=== PATIENT | male | born 1980 | race Caucasian/White ===

== ENCOUNTER 2021-02-11 13:42 | Emergency (ER) | payer OTHER, SELFPAY ==
--- NOTE | 2021-02-11 13:43 | W.ED.GENADLT ---
HPI - General Adult General: Chief complaint: Chest Pain Stated complaint: HEART PALPITATIONS Time Seen by Provider: 02/11/21 13:43 History of Present Illness: HPI narrative: DiabetesMr. Perez is a 41-year-old gentleman with history of hypertension and presents emerged department due to uncomfortable palpitations and arm tingling. He reports first noticing these episodes a few months ago. Typically they are short-lived and he describes a thumping feeling in his throat. There is no associated shortness of breath. Today he had an episode starting about noon that has persisted. He additionally endorses arm tingling. No lightheadedness, dizziness, shortness of breath. These episodes occur somewhat sporadically and he thinks he has had perhaps 4 or 5 prior to today. There are no specific provoking factors that he can identify. Intensity of symptoms is mild to moderate. No other significant changes in health reported or infectious symptoms. He just started taking Metformin about 2 weeks ago. Antihypertensive med is lisinopril. Review of Systems General: Reports: 10 or more systems reviewed and unremarkable except in HPI and below Physical Exam Narrative: EXAM NARRATIVE: GENERAL/CONSTITUTIONAL - well-appearing. No acute distress. Eyes - PERRL, no conjunctival injection ENMT - Atraumatic external nose and ears. Moist mucous membranes NECK - supple. trachea midline CARDIOVASCULAR - regular rate and rhythm. Chest pain not reproducible on palpation on exam. Palpitations correlate with ectopy noted on telemetry. Peripheral pulses 2+ and equal RESPIRATORY -clear to auscultation bilaterally. No retractions or accessory muscle use. ABDOMEN/GI - Nontender/Nondistended. No tenderness to percussion or evidence of peritonitis MSK - Extremities without obvious deformity or tenderness to palpation SKIN - Warm, Dry NEURO - alert and appropriately oriented. strength and sensation intact. Moves all extremities equally. PSYCH - Appropriate mood and affect Course ED course: - Patient was seen and evaluated by me at bedside - Patient placed on cardiac monitors, IV access obtained - Initial evaluation notable for no acute distress, nontoxic appearance. 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 - Labs notable for hypokalemia, hypocalcemia, hypomagnesium. Replenishment ordered. Delta troponin - Imaging notable for negative chest x-ray - Upon serial reexamination after treatment the patient was improved - Based on patient history, evaluation, labs, and imaging as interpreted the most likely cause of the patient's condition is unclear though given electrolyte abnormalities this certainly could cause palpitations. Patient is otherwise low risk by heart score. Patient takes lisinopril at home for hypertension and hypokalemia and other electrolyte derangements are not typical finding of this. Similar for Metformin especially in the context of normal renal function. Therefore, the cause of the patient's electrolyte abnormalities is unclear. He will require further evaluation in the primary care setting. I discussed this with the patient including need for repeat labs. - The results of ED evaluation were discussed with the patient including prescriptions and/or symptomatic cares (if applicable) including appropriate and responsible use, followup plan, and return precautions. The patient verbalized understanding and felt safe for discharge. - Patient discharged in satisfactory condition. Vital Signs: Vital signs: Vital Signs Temperature 97.9 F 02/11/21 18:55 Pulse Rate 72 02/11/21 18:55 Respiratory Rate 16 02/11/21 18:55 Blood Pressure 127/85 02/11/21 18:55 Pulse Oximetry 95 02/11/21 18:55 MDM - General Adult Medical Records: Attestation: I reviewed the patient's medical records. Lab Data: Attestation: I reviewed the patient's lab results. Labs: Lab Results 02/11/21 02/11/21 02/11/21 14:20 14:20 14:20 WBC 7.6 10^3/uL 10^3/ uL (4.0-10.0) RBC 3.99 10^6/uL L 10 ^6/uL (4.1-5.3) Hgb 11.8 g/dL g/dL (11.7-16.6) Hct 35.0 % L % (42.0-52.0) MCV 87.7 fl fl (80-94) MCH 29.6 pg pg (28.0-34.0) MCHC 33.7 g/dL g/dL (30.0-36.0) RDW 12.0 % L % (12.1-15.1) Plt Count 229 10^3/cmm 10^3 /cmm (130-400) MPV 10.6 fL H fL (7.4-10.4) Neut % (Auto) 74.8 % % Lymph % (Auto) 18.3 % % [place] % (Auto) 5.8 % % Eos % (Auto) 0.3 % % Baso % (Auto) 0.4 % % Neut # (Auto) 5.69 10^3/uL 10^3 /uL (1.8-7.7) Lymph # (Auto) 1.4 10^3/uL 10^3/ uL (0.8-4.8) [place] # (Auto) 0.4 10^3/uL 10^3/ uL (0.2-0.9) Eos # (Auto) 0.0 10^3/uL 10^3/ uL (0.0-0.8) Baso # (Auto) 0.0 10^3/uL 10^3/ uL (0.0-0.1) Nucleated RBC % (a uto) 0 % % Nucleated RBCs # 0.0 /100WBC /100W BC Sodium 140 mmol/L mmol/L (136-145) Potassium 2.8 mmol/L L* mmo l/L (3.5-5.1) Chloride 112 mmol/L H mmol /L (98-107) Carbon Dioxide 16 mmol/L L mmol/ L (22-29) Anion Gap 14.8 (5-19) BUN 9 mg/dL mg/dL (6-20) Creatinine 0.4 mg/dL L mg/dL (0.7-1.2) GFR Calculation 235.9 mL/min H mL /min (90-130) Glucose 120 mg/dL H mg/dL (65-115) Calculated Osmolal ity 290 mOsm/kg mOsm/ kg (285-295) Calcium 5.9 mg/dL L mg/dL (8.5-10.5) Ionized Calcium Me as Magnesium Total Bilirubin 0.2 mg/dL mg/dL (0.15-1.2) AST 9 U/L U/L (0-40) ALT 11 U/L U/L (0-41) Alkaline Phosphata se 45 IU/L IU/L (40-130) Troponin T Baselin e 6 ng/L ng/L (0-15) Troponin T 120 Min [place] Troponin T NT-Pro-B Natriuret Pep 13 pg/mL pg/mL (0-125) Total Protein 4.5 g/dL L g/dL (6.6-8.7) Albumin 3.1 g/dL L g/dL (3.5-5.2) Globulin 1.4 g/dL g/dL (1.3-4.6) TSH 0.72 uIU/mL uIU/m L (0.27-4.20) 02/11/21 02/11/21 02/11/21 14:20 16:31 16:31 WBC RBC Hgb Hct MCV MCH MCHC RDW Plt Count MPV Neut % (Auto) Lymph % (Auto) [place] % (Auto) Eos % (Auto) Baso % (Auto) Neut # (Auto) Lymph # (Auto) [place] # (Auto) Eos # (Auto) Baso # (Auto) Nucleated RBC % (a uto) Nucleated RBCs # Sodium Potassium Chloride Carbon Dioxide Anion Gap BUN Creatinine GFR Calculation Glucose Calculated Osmolal ity Calcium Ionized Calcium Me as Cancelled 1.1 mmol/L mmol/L (1.1-1.4) Magnesium 1.2 mg/dL L mg/dL (1.7-2.3) Total Bilirubin AST ALT Alkaline Phosphata se Troponin T Baselin e Troponin T 120 Min [place] 6.00 ng/L ng/L (0-15) Delta Troponin T 0 ABS# ABS# (0-10) NT-Pro-B Natriuret Pep Total Protein Albumin Globulin TSH EKG Data^: EKG 1: Attestation: I personally reviewed and interpreted this EKG as follows: EKG interpretation date: 02/11/21 EKG interpretation time: 13:53 Interpretation: Twelve-lead EKG shows a regular sinus rhythm at a rate of 72. MA interval 165, QRS duration 93, QTc 416. Normal axis. Interpretation: Sinus rhythm, nonspecific ST segment abnormalities. Computer generated interpretation: Chest X-Ray 02/11/21 14:06 IMPRESSION: No acute findings. EKG 2: Attestation: I personally reviewed and interpreted this EKG as follows: EKG interpretation date: 02/11/21 EKG interpretation time: 16:00 Interpretation: Twelve-lead EKG shows a regular sinus rhythm at a rate of 58. MA interval 147, QRS duration 92, QTc 387. Normal axis. Interpretation: Sinus rhythm. Nonspecific ST segment abnormalities. Similar to prior. Computer generated interpretation: Chest X-Ray 02/11/21 14:06 IMPRESSION: No acute findings. Discharge Plan Discharge Patient Disposition: Home Clinical Impression: Chest pain, Palpitation, Hypokalemia, Hypomagnesemia, Hypocalcemia Condition: Stable Prescriptions: No Action Zyrtec 10 mg Tablet 10 mg PO DAILY RF: 0 famotidine 20 mg Tablet 20 mg PO DAILY RF: 0 lisinopril 10 mg tablet 10 mg PO DAILY RF: 0 aspirin 81 mg Tablet,Chewable 81 mg PO DAILY RF: 0 Flonase 50 mcg/actuation [place],Suspension 1 spray INTRANASAL BID PRN (Reason: CONGESTION) RF: 0 metformin 500 mg tablet extended release 24 hr 500 mg PO DAILY RF: 0 sertraline 50 mg tablet 50 mg PO DAILY RF: 0 thiamine HCl (vitamin B1) 25 mg Tablet 25 mg PO DAILY RF: 0 Elderberry 200 mg Capsule 200 mg PO DAILY RF: 0 Immunicare 15-15-10 mg-unit-mcg Capsule 1 cap PO DAILY RF: 0 Discharge Orders: Discharge ED (Routine); Ordered 02/11/21 Ordered By: Yovany Hines Discharge Diet: Usual diet Discharge Activity: Resume usual activity Patient Instructions: Chest Pain (ED), Hypokalemia (ED), Hypocalcemia (ED), Hypomagnesemia (ED) Activity Restrictions/Additional Instructions: Thank you for visiting the emergency department. You were seen and evaluated for chest pain and palpitations. The exact cause of your symptoms is unclear however you were found to have electrolyte abnormalities. Please follow-up with your primary care provider. Please return to emergency department for any symptoms that you are concerned about and feel needs emergency department evaluation. Coding Level of Care Code ED Facility Assistant for Mily Low
[2021-02-11 13:44] VITALS: BP 127/87; PULSE 78; RESP 19; TEMP 36.7; O2SAT 93; BMI 32.3
--- NOTE | 2021-02-11 14:06 | XRR_ITS ---
PROCEDURE INFORMATION: Exam: XR Chest Exam date and time: 02/11/2021 2:06 PM Age: 41 years old Clinical indication: Pain; Chest pressure; Additional info: Palpatations TECHNIQUE: Imaging protocol: XR of the chest. Views: 1 view. COMPARISON: CR Arthrogram Shoulder LEFT [id number] 01/10/2016 1:28 PM FINDINGS: Lungs: Unremarkable. No consolidation. Pleural spaces: Unremarkable. No pleural effusion. No pneumothorax. Heart/Mediastinum: Unremarkable. No cardiomegaly. Bones/joints: Unremarkable. XR/XR chest 1V portable [id number] IMPRESSION: No acute findings.
--- NOTE | 2021-02-11 14:06 | ECG_ITS ---
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1980 Requested By: Yovany Hines Order Number: [id number] Luzma MD: YURIDIA SERRANO Measurements Intervals [place] Rate: 72 P: 46 [place]: 165 QRS: 9 QRSD: 93 T: 31 QT: 378 QTc: 416 Interpretive Statements SINUS RHYTHM WITH OCCASIONAL SUPRAVENTRICULAR PREMATURE COMPLEXES LOW QRS VOLTAGE IN PRECORDIAL LEADS [QRS DEFLECTION < 1.0 mV IN CHEST LEADS] INTERPRETATION BASED ON A DEFAULT AGE OF 40 YEARS No previous ECG available for comparison Electronically Signed On 02-11-2021 18:22:44 CDT by YURIDIA SERRANO [email or web address].[employer]/store/[id number] f
[2021-02-11 14:27] LABS: Basophils % 0.4 %; Eosinophils % 0.3 %; Hemoglobin 11.8 g/dL (11.7-16.6); Lymphocytes # 1.4 10^3/uL (0.8-4.8); Lymphocytes % 18.3 %; Mean Corpuscular HGB Conc 33.7 g/dL (30.0-36.0); Mean Corpuscular Hemoglobin 29.6 pg (28.0-34.0); Mean Corpuscular Volume 87.7 fl (80-94); Mean Platelet Volume 10.6 fL (7.4-10.4); Monocytes # 0.4 10^3/uL (0.2-0.9); Monocytes % 5.8 %; Neutrophils # 5.69 10^3/uL (1.8-7.7); Neutrophils % 74.8 %; Nucleated Red Blood Cells % 0 %; Platelet Count 229 10^3/cmm (130-400); Red Blood Count 3.99 10^6/uL (4.1-5.3); White Blood Count 7.6 10^3/uL (4.0-10.0)
[2021-02-11 14:44] VITALS: BP 127/87; PULSE 73; RESP 14; O2SAT 95
[2021-02-11 14:47] LABS: Troponin(5th) Baseline 6 ng/L (0-15)
[2021-02-11 15:01] LABS: Alanine Aminotransferase 11 U/L (0-41); Albumin Level 3.1 g/dL (3.5-5.2); Alkaline Phosphatase 45 IU/L (40-130); Aspartate Amino Transferase 9 U/L (0-40); Blood Urea Nitrogen 9 mg/dL (6-20); Carbon Dioxide 16 mmol/L (22-29); Chloride 112 mmol/L (98-107); Globulin 1.4 g/dL (1.3-4.6); Glomerular Filtration Rate 235.9 mL/min (90-130); Glucose 120 mg/dL (65-115); NT Pro B Type Natriuretic Pept 13 pg/mL (0-125); Osmolality Calculated 290 mOsm/kg (285-295); Sodium 140 mmol/L (136-145); Thyroid Stimulating Hormone 0.72 uIU/mL (0.27-4.20); Total Bilirubin 0.2 mg/dL (0.15-1.2); Total Protein 4.5 g/dL (6.6-8.7)
[2021-02-11 15:04] LABS: Anion Gap 14.8 (5-19)
[2021-02-11 15:05] LABS: Potassium 2.8 mmol/L (3.5-5.1)
[2021-02-11 15:06] LABS: Calcium 5.9 mg/dL (8.5-10.5)
[2021-02-11] MEDS: sodium chloride 0.9% 1,000 ML 999 ML IV (15:06)
--- NOTE | 2021-02-11 15:13 | PC.NURSE ---
Critical labs Notified by telephone that Potassium 2.8 and Calcium at 5.9. Dr De notified.
[2021-02-11 15:28] LABS: Magnesium 1.2 mg/dL (1.7-2.3)
[2021-02-11] MEDS: potassium chloride ER 20 mEq Tablet 40 MEQ PO (15:44)
[2021-02-11] MEDS: lidocaine 1% 5 ML in potassium chloride premix 100 ML 50 ML IV (15:46)
--- NOTE | 2021-02-11 16:06 | ECG_ITS ---
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
[2021-02-11 16:44] LABS: Ionized Calcium 1.1 mmol/L (1.1-1.4)
[2021-02-11 16:57] VITALS: BP 127/85; PULSE 72; RESP 16; O2SAT 95
[2021-02-11 17:05] LABS: Troponin 5 2HR Delta 0 ABS# (0-10)
[2021-02-11 18:55] VITALS: BP 127/85; PULSE 72; RESP 16; TEMP 36.6; O2SAT 95
== END 2021-02-11 18:56 | disposition home or self-care (01) ==
PROVIDERS: Emergency Provider Emergency Medicine
DX: R07.9 Chest pain, unspecified (principal); R00.2 Palpitations; E87.6 Hypokalemia; E83.42 Hypomagnesemia; E83.51 Hypocalcemia; Z79.84 Long term (current) use of oral hypoglycemic drugs; Z79.82 Long term (current) use of aspirin
CPT/HCPCS: 36415; 71045; 80053; 82330; 83735; 83880; 84443; 84484; 85025; 93005; 96365; 96366; 99284; J3475; J3480; J7030

== ENCOUNTER 2021-02-22 12:37 | Outpatient (CLI) | payer OTHER, SELFPAY ==
[2021-02-22 12:56] VITALS: BMI 31.6
--- NOTE | 2021-02-22 12:57 | ECG_ITS ---
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 Interpretive Statements NAME OF STUDY: TREADMILL STRESS TEST INDICATION: [Chest Pain, ] EXERCISE DATA: The patient was exercised by Daniel protocol. Baseline heart rate was 76 beats per minute. Baseline blood pressure was 130/86 millimeters of mercury. Target heart rate was 140 beats per minute. Maximum heart rate achieved was 164, which was 117% of the target heart rate. Maximum blood pressure was 190/80 millimeters of mercury. Total exercise time was 9 minutes 57 seconds. Maximum METs achieved was 13.5 maximum VO2 was 47.3. The reason for ending the test was completion of the protocol. The patient complained of shortness of breath during the stress test, which then resolved at the end of the test. ELECTROCARDIOGRAM: BASELINE: Showed sinus rhythm, normal axis, no significant ST-T changes at the baseline noted. [] EXERCISE: At the peak exercise level, [] No significant ST-T changes suggestive of ischemia noted. PVCs were noted[] RECOVERY: During the recovery period, heart rate dropped appropriately. No significant ST-T changes in the recovery suggestive of ischemia noted. [] CONCLUSION: 1. Exercise capacity excellent. 2. Heart rate response was appropriate. 3. Blood pressure response was appropriate. 4. Symptoms not suggestive of ischemia. 5. Stress test was not suggestive of ischemia. Electronically Signed On 02-27-2021 10:41:08 CDT by Simón Richard M.D. [id number]
[2021-02-22 13:35] VITALS: BP 116/92; PULSE 98
== END 2021-02-22 12:38 | disposition home or self-care (01) ==
LOC: CDL 12:44
PROVIDERS: PCP Nurse Practitioner Family; Visit Provider Nurse Practitioner Family
DX: R07.9 Chest pain, unspecified (principal); R06.02 Shortness of breath
CPT/HCPCS: 93017

== ENCOUNTER 2023-09-14 09:35 | Emergency (ER) | payer OTHER, SELFPAY ==
[2023-09-14 09:39] VITALS: BP 142/88; PULSE 75; RESP 18; TEMP 36.6; O2SAT 100
--- NOTE | 2023-09-14 09:44 | ECG_ITS ---
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 Measurements Intervals [place] Rate: 70 P: 68 [place]: 172 QRS: 71 QRSD: 95 T: 58 QT: 363 QTc: 393 Interpretive Statements SINUS RHYTHM Compared to ECG 02/11/2021 15:54:06 Sinus bradycardia no longer present Electronically Signed On 09-15-2023 12:23:25 CDT by Simón Richard M.D. [email or web address]idianSola[facility]irectday[facility].[employer]Gar/store/[id number] f
--- NOTE | 2023-09-14 09:44 | XRR_ITS ---
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 Reports flushed feeling; Additional info: Dyspnea/cough TECHNIQUE: Imaging protocol: Radiologic exam of the chest. Views: 1 view. COMPARISON: CR XR chest 1V portable [id number] 02/11/2021 2:35 PM FINDINGS: Lungs: Unremarkable. No consolidation. Pleural spaces: Unremarkable. No pleural effusion. No pneumothorax. Heart/Mediastinum: Unremarkable. No cardiomegaly. Bones/joints: Mild degenerative disease of bilateral acromioclavicular joints. XR/XR chest 1V portable [id number] IMPRESSION: No acute cardiopulmonary process.
[2023-09-14 10:01] LABS: Basophils % 0.5 %; Eosinophils # 0.1 10^3/uL (0.0-0.8); Eosinophils % 1.6 %; Hematocrit 45.2 % (37-53); Lymphocytes # 2.6 10^3/uL (0.8-4.8); Lymphocytes % 33.4 %; Mean Corpuscular HGB Conc 34.1 g/dL (30-55); Mean Corpuscular Hemoglobin 28.8 pg (27-33); Mean Corpuscular Volume 84.6 fl (82-101); Monocytes # 0.5 10^3/uL (0.2-0.9); Monocytes % 5.7 %; Neutrophils % 58.4 %; Nucleated Red Blood Cells % 0 %; Platelet Count 301 10^3/cmm (157-399); Red Blood Count 5.34 10^6/uL (3.85-5.65); Red Cell Distribution Width 12.7 % (12.1-15.1); White Blood Count 7.88 10^3/uL (3.29-11.43)
[2023-09-14] MEDS: aspirin 81 mg Chew Tablet 324 MG PO (10:04)
--- NOTE | 2023-09-14 10:08 | ED_ITS ---
HPI - Chest Pain 2 General: Chief Complaint: Chest Pain Stated Complaint: chest pains Time Seen by Provider: 09/14/23 09:44 History of Present Illness: 43-year-old male with a history of hyper tension and hypokalemia who presents to the emergency room with chest discomfort. He says he went to eat breakfast at a local restaurant and first had some blurriness in his left visual field. He then developed some tightness in between his shoulder blades and up into his neck. He says he has some issues with his neck at baseline that it is always stiff. He says sometimes his neck will make him dizzy. He said he had a similar episode of this about 3 years ago and it was low potassium. He had a stress test afterwards that was normal. Chest discomfort has improved but is just still slight. No fevers. No cough. No nausea or vomiting. No altered mental status. No focal motor deficits. Review of Systems 2 Narrative: Constitutional symptoms: Negative except as documented in HPI. Skin symptoms: Negative except as documented in HPI. Eye symptoms: Negative except as documented in HPI. ENMT symptoms: Negative except as documented in HPI. Respiratory symptoms: Negative except as documented in HPI. Cardiovascular symptoms: Negative except as documented in HPI. Gastrointestinal symptoms: Negative except as documented in HPI. Genitourinary symptoms: Negative except as documented in HPI. Musculoskeletal symptoms: Negative except as documented in HPI. Neurologic symptoms: Negative except as documented in HPI. Psychiatric symptoms: Negative except as documented in HPI. Endocrine symptoms: Negative except as documented in HPI. Physical Exam 2 Narrative: EXAM NARRATIVE: General: Alert, no acute distress. Skin: Warm, dry. Head: Normocephalic, atraumatic. Neck: Supple, trachea midline. Eye: Extraocular movements are intact. Ears, nose, mouth and throat: mucosa moist. Cardiovascular: Regular, Normal peripheral perfusion. Respiratory: Lungs are clear to auscultation, respirations are non-labored, breath sounds are equal, Symmetrical chest wall expansion. Gastrointestinal: Soft, Nontender, Non distended, Normal bowel sounds. Musculoskeletal: Normal ROM, no deformity. Neurological: Alert and oriented, No focal neurological deficit observed. Psychiatric: Cooperative, appropriate mood & affect. Course 2 Vital Signs: Vital signs: Vital Signs Temperature 97.8 F 09/14/23 09:39 Pulse Rate 75 05/04/24 09:39 Respiratory Rate 18 09/14/23 09:39 Blood Pressure 142/88 09/14/23 09:39 Pulse Oximetry 100 09/14/23 09:39 Oxygen Delivery Me thod Room Air 09/14/23 09:39 MDM - Chest Pain Medical Decision Making Differential diagnosis for patient with chest pain includes but is not limited to and based on the above HPI, review of systems and physical exam: Pneumonia. unstable angina. angina. Acute coronary syndrome / DC. Pulmonary embolism. Costochondritis / musculoskeletal. Pleurisy. Pericarditis. Esophageal spasm. Pancreatis. Cholecystitis. Workup: Lab work, chest X-ray and EKG ordered to evaluate, rule in and rule out above pathologies. EKG: Time 940 rate 70 normal sinus rhythm, No ST-T changes, no ectopy, normal TN & QRS intervals, This was reviewed and interpreted by myself the ER physician at 9:50 AM. Chest x-ray: No acute process. No infiltrate. No pneumothorax. No cardiomegaly. This was reviewed and interpreted by myself the ER physician. Lab Review: Laboratory results were reviewed and interpreted by myself the emergency room physician. White count is 7.8. Hemoglobin is 15. BUN and creatinine are 15 and 0.8. Serial troponins are negative. Emergency Department Assessment of Chest Pain Score (EDACS) from [employer] on 09/14/2023 RESULT SUMMARY: 8 points Low risk by the EDACS Score. If the patient also has: (1) EKG without new ischemic changes and (2) negative initial and 2-hour troponins, then this patient is safe for discharge to early outpatient follow-up investigation (or proceed to earlier inpatient testing). If EKG with ischemic changes or positive troponin, they are not low risk and require normal risk stratification. INPUTS: Age ?> 43 years Sex ?> 6 = Male Known coronary artery disease or >= risk factors ?> 0 = No Diaphoresis ?> 0 = No Pain radiates to arm, shoulder, neck, or jaw ?> 0 = No Pain occurred or worsened with inspiration ?> 0 = No Pain is reproduced by palpation ?> 0 = No I reviewed the patient's medical record. Reexamination: Patient remains in no distress. No increased work of breathing. No altered mental status. He denies any chest pain. Assessment and plan: Noncardiac chest pain - Discharged home - Discussed findings and plan with patient. Answered any questions. - All laboratory values were reviewed and interpreted personally by myself, the ER physician - All imaging was reviewed and interpreted personally by myself, the ER physician. - Evaluation and treatment of this problem were appropriate in the emergency setting Lab Data 09/14/23 09:55 09/14/23 09:55 Radiology Impressions Chest X-Ray 09/14/23 09:44 IMPRESSION: No acute cardiopulmonary process. Laboratory Results WBC 7.88 10^3/uL (3.29-11.43) 09/14/23 09:55 RBC 5.34 10^6/uL (3.85-5.65) 09/14/23 09:55 Hgb 15.40 g/dL (11.27-16.99) 09/14/23 09:55 Hct 45.2 % (37-53) 09/14/23 09:55 MCV 84.6 fl (82-101) 09/14/23 09:55 MCH 28.8 pg (27-33) 09/14/23 09:55 MCHC 34.1 g/dL (30-55) 09/14/23 09:55 RDW 12.7 % (12.1-15.1) 09/14/23 09:55 Plt Count 301 10^3/cmm (157-399) 09/14/23 09:55 MPV 10.0 fL (7.4-10.4) 09/14/23 09:55 Neut % (Auto) 58.4 % 09/14/23 09:55 Lymph % (Auto) 33.4 % 09/14/23 09:55 [place] % (Auto) 5.7 % 09/14/23 09:55 Eos % (Auto) 1.6 % 09/14/23 09:55 Baso % (Auto) 0.5 % 09/14/23 09:55 Neut # (Auto) 4.60 10^3/uL (1.8-7.7) 09/14/23 09:55 Lymph # (Auto) 2.6 10^3/uL (0.8-4.8) 09/14/23 09:55 [place] # (Auto) 0.5 10^3/uL (0.2-0.9) 09/14/23 09:55 Eos # (Auto) 0.1 10^3/uL (0.0-0.8) 09/14/23 09:55 Baso # (Auto) 0.0 10^3/uL (0.0-0.1) 09/14/23 09:55 Nucleated RBC % (auto) 0 % 09/14/23 09:55 Nucleated RBCs # 0.0 /100WBC 09/14/23 09:55 Sodium 135 mmol/L (136-145) L 09/14/23 09:55 Potassium 4.1 mmol/L (3.5-5.1) 09/14/23 09:55 Chloride 98 mmol/L (98-107) 09/14/23 09:55 Carbon Dioxide 25 mmol/L (22-29) 09/14/23 09:55 Anion Gap 16.1 (5-19) 09/14/23 09:55 BUN 15 mg/dL (6-20) 09/14/23 09:55 Creatinine 0.8 mg/dL (0.7-1.2) 09/14/23 09:55 GFR Calculation 105.0 mL/min (90-130) 09/14/23 09:55 Glucose 175 mg/dL (65-115) H 09/14/23 09:55 Calculated Osmolality 285 mOsm/kg (285-295) 09/14/23 09:55 Calcium 9.4 mg/dL (8.5-10.5) 09/14/23 09:55 Total Bilirubin 0.4 mg/dL (0.15-1.2) 09/14/23 09:55 AST 12 U/L (0-40) 09/14/23 09:55 ALT 17 U/L (0-41) 09/14/23 09:55 Alkaline Phosphatase 72 U/L (40-130) 09/14/23 09:55 Troponin T Baseline < 6 ng/L (0-15) 09/14/23 09:55 Troponin T 120 Minute 6.00 ng/L (0-15) 09/14/23 12:03 Delta Troponin T 0.09283 ABS# (0-10) 09/14/23 12:03 Total Protein 7.3 g/dL (6.6-8.7) 09/14/23 09:55 Albumin 4.8 g/dL (3.5-5.2) 09/14/23 09:55 Globulin 2.5 g/dL (1.3-4.6) 09/14/23 09:55 All radiology interpretation(s) finalized by discharge Discharge Plan Discharge Patient Disposition: Home Clinical Impression: Chest pain, non-cardiac Condition: Stable Prescriptions: No Action Zyrtec 10 mg Tablet 10 mg PO DAILY famotidine 20 mg Tablet 20 mg PO DAILY lisinopril 10 mg tablet 10 mg PO DAILY aspirin 81 mg Tablet,Chewable 81 mg PO DAILY Flonase 50 mcg/actuation [place],Suspension 1 spray INTRANASAL BID PRN (Reason: CONGESTION) metformin 500 mg tablet extended release 24 hr 500 mg PO DAILY sertraline 50 mg tablet 50 mg PO DAILY thiamine HCl (vitamin B1) 25 mg Tablet 25 mg PO DAILY Elderberry 200 mg Capsule 200 mg PO DAILY Immunicare 15-15-10 mg-unit-mcg Capsule 1 cap PO DAILY Discharge Orders: Discharge ED (Routine); Ordered 09/14/23 Ordered By: Delisa Urbina Referrals: Zandra Jin FNP [Primary Care Provider] - (You have been screened and evaluated and felt safe for discharge. Health conditions do change or evolve sometimes and as such it is important that you follow up with your Primary Doctor to be re checked, 3-5 days is a general good time frame for follow up. You are always welcome to return to the ED for re assessment if your symptoms are worsening or you have new concerns) Discharge Diet: Usual diet Discharge Activity: Resume usual activity Patient Instructions: Noncardiac Chest Pain (ED) Coding Level of Care Code ED Grader Green Meat for Mily Low
[2023-09-14 10:22] LABS: Alanine Aminotransferase 17 U/L (0-41); Albumin Level 4.8 g/dL (3.5-5.2); Alkaline Phosphatase 72 U/L (40-130); Anion Gap 16.1 (5-19); Aspartate Amino Transferase 12 U/L (0-40); Blood Urea Nitrogen 15 mg/dL (6-20); Calcium 9.4 mg/dL (8.5-10.5); Carbon Dioxide 25 mmol/L (22-29); Chloride 98 mmol/L (98-107); Creatinine Clr Calc Pharmacy 153.9867; Globulin 2.5 g/dL (1.3-4.6); Glucose 175 mg/dL (65-115); Osmolality Calculated 285 mOsm/kg (285-295); Potassium 4.1 mmol/L (3.5-5.1); Sodium 135 mmol/L (136-145); Total Bilirubin 0.4 mg/dL (0.15-1.2); Total Protein 7.3 g/dL (6.6-8.7)
[2023-09-14 10:23] LABS: Troponin(5th) Baseline < 6 ng/L (0-15)
[2023-09-14 11:11] VITALS: PULSE 97; O2SAT 100
[2023-09-14 11:41] VITALS: PULSE 94; O2SAT 100
--- NOTE | 2023-09-14 12:13 | ECG_ITS ---
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 Measurements Intervals [place] Rate: 63 P: 33 [place]: 176 QRS: 2 QRSD: 91 T: 23 QT: 378 QTc: 387 Interpretive Statements SINUS RHYTHM LOW QRS VOLTAGE IN PRECORDIAL LEADS [QRS DEFLECTION < 1.0 mV IN CHEST LEADS] Compared to ECG 02/11/2021 15:54:06 Sinus bradycardia no longer present Electronically Signed On 09-15-2023 12:45:14 CDT by Simón Richard M.D. [id number]
[2023-09-14 12:27] LABS: Troponin 5 2HR Delta 0.00001 ABS# (0-10)
[2023-09-14 12:30] VITALS: PULSE 98; RESP 14; O2SAT 100
[2023-09-14 13:14] VITALS: BP 120/75; PULSE 67; RESP 16; O2SAT 96
== END 2023-09-14 13:14 | disposition home or self-care (01) ==
PROVIDERS: Family Medicine; Emergency Provider Emergency Medicine; PCP Nurse Practitioner Family
DX: R07.89 Other chest pain (principal); Z79.82 Long term (current) use of aspirin; Z79.84 Long term (current) use of oral hypoglycemic drugs
CPT/HCPCS: 36415; 71045; 80053; 84484; 85025; 93005; 99285

== ENCOUNTER 2023-10-09 13:10 | Outpatient (CLI) | payer OTHER, SELFPAY ==
--- NOTE | 2023-10-09 13:18 | MR_ITS ---
WS: [id number] MRA ANGIOGRAPHY [place] OF [place] HISTORY: NUMBNESS TINGLING IN BOTH ARMS/VISION CHANGES COMPARISON: None available. TECHNIQUE: 3-D MR angiography is performed of the [place]. All images are reviewed including source images. Distal vertebral and basilar arteries are intact with no significant stenosis or plaque. Posterior ce rebral arteries are normal course and caliber. Posterior communicating arteries are both patent but v carly small caliber. Intracranial portion of the internal carotid arteries are normal course and caliber. No significant a therosclerosis, stenosis or aneurysm identified. Middle and anterior cerebral arteries are both paten t with no significant disease. Anterior communicating artery is also normal. MR/MR angio head wo con [id number] IMPRESSION: Normal MRA [place].
== END 2023-10-09 13:11 | disposition home or self-care (01) ==
LOC: RAD 13:10
PROVIDERS: PCP Nurse Practitioner Family; Visit Provider Nurse Practitioner Family
DX: R20.2 Paresthesia of skin (principal); H53.9 Unspecified visual disturbance
CPT/HCPCS: 70544

== ENCOUNTER 2023-11-18 08:45 | Outpatient (CLI) | payer OTHER, SELFPAY ==
--- NOTE | 2023-11-18 08:55 | MR_ITS ---
WS: [id number] MRI CERVICAL SPINE NONCONTRAST TECHNIQUE: Sagittal T1, T2 and STIR imaging. Axial T2, gradient, and fiesta imaging. CLINICAL INFORMATION: NECK PAIN COMPARISON: None. FINDINGS: Straightening of the normal cervical lordosis. Cord signal is normal. No high-grade central canal andrés nosis. C2-C3: Normal. C3-C4: Mild facet arthropathy. Spinal canal and foramen are patent. C4-C5: Mild facet arthropathy. Spinal canal and foramen are patent. C5-C6: Mild facet arthropathy. Spinal canal and foramen are patent. C6-C7: Moderate RIGHT and no significant LEFT foraminal narrowing. Spinal canal is patent. C7-T1: Mild LEFT and no significant RIGHT foraminal narrowing. Visualized brain stem structures: Normal. Prevertebral soft tissues: Normal. MR/MR cervical spin wo con* [id number] IMPRESSION: 1. Straightening of the normal cervical lordosis. Cord signal is normal. 2. Moderate RIGHT C6-7 bony foraminal narrowing. 3. No significant central canal stenosis. 4. Mild LEFT C7-T1 bony foraminal narrowing. 5. Mild facet arthropathy C3-C6.
== END 2023-11-18 08:51 | disposition home or self-care (01) ==
PROVIDERS: PCP Nurse Practitioner Family; Visit Provider Nurse Practitioner Family
DX: M99.61 Osseous and subluxation stenosis of intervertebral foramina of cervical region (principal); R20.2 Paresthesia of skin
CPT/HCPCS: 72141